=== PATIENT | male | born 1985 | race Caucasian/White ===

== ENCOUNTER 2024-09-16 20:43 | Emergency (ER) | payer SELFPAY ==
[2024-09-16 20:44] VITALS: BP 158/118
--- NOTE | 2024-09-16 21:58 | ED.GENMED ---
History of Present Illness
General
Chief Complaint: Skin Surface Trauma
Source: patient
Time Seen by Provider: 09/16/24 21:35
History of Present Illness
History of Present Illness:
39yoM with no significant past medical history presenting for evaluation after a head injury 48 hours ago. Patient was walking into his home and was carrying several bags. He tripped on the outdoor steps and fell forward. He hit his head against
the stone floor. He believes he lost consciousness for about 1 minute. Patient sustained right forehead/eyebrow lacerations during the episode. He applied skin adhesive to the area. Patient currently has a mild headache but he denies any
dizziness, nausea, vomiting. Patient states he is mainly here to have his wounds cleaned up. Unknown last Tdap. He is not taking any blood thinners.
Phy Exam
General Physical Exam
General Presentation: well appearing and no apparent distress
General age: appears stated age
General Skin: warm and dry
General Habitus: normal
General Mental: alert
ENT Exam
ENT Exam: TM's normal (No hemotympanum) and other (R periorbital ecchymosis and swelling noted. +Tenderness along the brow ridge. Abrasions present as well as a 3cm laceration along the R eyebrow which has a dressing on top. )
Eye Exam
Eye Exam: PERRL and EOMI
Neurological Exam
Neurological Exam: alert and other (Ambulating normally)
Fausto Coma Scale
Eye Opening: Spontaneous
Verbal Response: Oriented
Motor Response: Obeys Commands
GCS Total Score: 15
Skin Exam
Skin Exam: warm/dry
Psychiatric Exam
Psychiatric Exam: normal mood/affect
Course
Orders/Labs/Results
Orders:
Orders
09/16/24 21:58
Tetanus/Diphth/Acelpertussis [Adacel] 0.5 ml IM .ONCE ONE
Vital Signs
Initial and Last Documented VS:
Initial Vital Signs
Temp Pulse Resp BP Pulse Ox
99.2 F 109 16 158/118 100
09/16/24 20:44 09/16/24 20:44 09/16/24 20:44 09/16/24 20:44 09/16/24 20:44
Last Documented Vital Signs
Temp Pulse Resp BP Pulse Ox
99.2 F 88 14 126/96 97
09/16/24 20:44 09/16/24 22:41 09/16/24 22:41 09/16/24 22:41 09/16/24 22:41
MDM/Problems Addressed
Differential Diagnosis Includes:
39yoM here after a fall with head/facial trauma 2 days ago. Tripped and fell forward. He believes he passed out for about a minute. R periorbital ecchymosis noted on exam with abrasions and a R eyebrow laceration. GCS is 15. No focal neuro deficits
appreciated and patient ambulating normally.
Wound about 48 hours old so unable to place sutures. Laceration irrigated with saline and steri-strips applied. Recommended CT head/facial bones to exclude fracture and intracranial hemorrhage. Patient is refusing imaging at this time stating that
he is only here for wound care. Tdap updated. Home wound care discussed. Advised f/u with PCP and ED return precautions discussed. He was discharged in stable condition.
*Critical Care Note
Total Time (30-74mins, 75-104mins- exclusive of procedures): Not Applicable
ED Attending Note
-
Portions of this chart may have been created with voice recognition software.� Occasional wrong word or��sound alike� substitutions may have occurred due to the inherent limitations of voice recognition software.
Discharge Plan
Departure
Patient Disposition: Home (Routine Discharge)
Date of Disposition: 09/16/24
Time of Disposition: 22:00
Patient with high blood pressure during this ER visit?: Yes
Discharge Problem:
Laceration of eyebrow, right, Closed head injury
Instructions: Head injury in adults, Taking care of cuts, scrapes, and puncture wounds
Activity Restrictions/Additional Instructions:
The steri-strips should come off by themselves. You may remove the steri-strips in 1 week if still on. Keep wound clean and dry.
Please follow-up with your family doctor.
Return to the ER with any worsening symptoms, severe headaches, confusion, or signs of infection.
Interventions
Interventions:
*Risk Screen - Suicide Last Done: 09/16/24 20:44
*General Assessment Last Done: 09/16/24 20:44
*Neglect/Abuse Screening Last Done: 09/16/24 20:44
*ED COVID-19 Vaccine History Last Done: 09/16/24 20:44
*Nursing Disposition Last Done: 09/16/24 22:42
ED-Skin Assessment Last Done: 09/16/24 22:35
Discharge Date and Time
Discharge Date/Time: 09/16/24 22:53
Print Language: [place]
[2024-09-16] MEDS: ADACEL 0.5 ML IM (22:27)
[2024-09-16 22:41] VITALS: BP 126/96
== END 2024-09-16 22:53 | disposition home or self-care (01) ==
LOC: EMR 20:43
PROVIDERS: EMERGENCY PHYSICIAN Emergency Medicine
DX: S01.111A Laceration without foreign body of right eyelid and periocular area, initial encounter (principal); S09.90XA Unspecified injury of head, initial encounter; W10.9XXA Fall (on) (from) unspecified stairs and steps, initial encounter; R03.0 Elevated blood-pressure reading, without diagnosis of hypertension; Z23 Encounter for immunization
CPT/HCPCS: 99282; 90471; 90715